=== PATIENT | male | born 2000 | race Hispanic/Latino ===

== ENCOUNTER 2022-07-14 13:01 | Emergency (ER) | payer MEDICAID, OTHER ==
[~2022-07-14] VITALS: Ht 180.3 cm; Wt 74.8 kg
[2022-07-14] MEDS ORDERED: ACETAMINOPHEN 500 MG TABLET PO ONE (14:15)
[2022-07-14] MEDS ORDERED: IBUPROFEN 600 MG TABLET PO ONE (14:15)
[2022-07-14] MEDS ORDERED: 0.9%NACL 1000ML 1,000 ML IV SCH (14:30)
[2022-07-14 14:55] LABS: BASOPHILS % (AUTO) 0.4 % (0.0-5.0); EOSINOPHILS % (AUTO) 0.2 % (0.0-8.0); HEMATOCRIT 46.2 % (42-54); LYMPHOCYTES % (AUTO) 17.9 % (21.0-51.0); MEAN CORPUSCULAR HEMOGLOBIN 29.6 pg (27.0-33.0); MEAN CORPUSCULAR HGB CONC 35.3 g/dL (32.0-36.0); MONOCYTES % (AUTO) 9.7 % (3.0-13.0); NEUTROPHILS % (AUTO) 70.2 % (40.0-77.0); PLATELET COUNT (AUTO) 245 K/uL (130-400); RED CELL DISTRIBUTION WIDTH 12.2 % (11.0-15.5)
[2022-07-14 15:11] LABS: APPEARANCE,URINE CLEAR (CLEAR); BILIRUBIN,URINE NEGATIVE (NEGATIVE); COLOR,URINE YELLOW (YELLOW); GLUCOSE, URINE (UA) NEGATIVE (NEGATIVE); KETONES,URINE 15 mg/dL (NEGATIVE); LEUKOCYTE ESTERASE ,URINE NEGATIVE Leu/uL (NEGATIVE); NITRATE,URINE NEGATIVE (NEGATIVE); OCCULT BLOOD,URINE NEGATIVE (NEGATIVE); PH,URINE 8.5 (5.0-8.0); PROTEIN,URINE NEGATIVE (NEGATIVE)
[2022-07-14 15:13] LABS: ALBUMIN 4.3 g/dL (3.5-5.0); POTASSIUM 3.7 mmol/L (3.5-5.1); TOTAL PROTEIN, SERUM 8.5 g/dL (6.0-8.3)
[2022-07-14 15:22] LABS: BACTERIA,URINE Rare /HPF (None Seen); RBC,URINE None Seen /HPF (0-1); SQUAMOUS EPITHELIAL CELL,UR None Seen /HPF (0-2); WBC,URINE None Seen /HPF (0-1)
[2022-07-14] MEDS ORDERED: ONDANSETRON 4MG INJ IVP ONE (15:30)
[2022-07-14] MEDS ORDERED: CLINDAMYCIN IVPB 600MG/50ML 50 ML IV SCH (16:00)
[2022-07-14] MEDS ORDERED: ONDA4TAB10 PO (16:35)
[2022-07-14] MEDS ORDERED: IBUP-2070 PO (16:35)
[2022-07-14] MEDS ORDERED: ACET-66 PO (16:35)
[2022-07-14] MEDS ORDERED: CLIN-141 PO (16:35)
[2022-07-14 16:59] VITALS: BP 115/59
== END 2022-07-14 17:03 | disposition home or self-care (01) ==
LOC: EDH 13:01 → EDSEX 13:01 → EDH 17:03
DX: L05.01 Pilonidal cyst with abscess (principal); R50.9 Fever, unspecified; R51.9 Headache, unspecified; Z20.822 Contact with and (suspected) exposure to COVID-19
CPT/HCPCS: 99284; 96374; 87635; 96361; 96375; 80053; 85025; 87040 ×2; 87880; 87804 ×2; 83605; 81001; 36415; 84145; C9803; J7030; J2405; J3490

== ENCOUNTER 2022-07-15 12:43 | Emergency (ER) | payer OTHER ==
[~2022-07-15] VITALS: Ht 180.3 cm; Wt 72.6 kg
[~2022-07-15 12:43] MED LIST: ACET-66 PO; CLIN-141 PO; IBUP-2070 PO; ONDA4TAB10 PO
[2022-07-15 12:44] VITALS: BP 130/74
[2022-07-15 13:32] LABS: BASOPHILS % (AUTO) 0.5 % (0.0-5.0); HEMATOCRIT 45.4 % (42-54); LYMPHOCYTES % (AUTO) 24.7 % (21.0-51.0); MEAN CORPUSCULAR HEMOGLOBIN 29.7 pg (27.0-33.0); MEAN CORPUSCULAR HGB CONC 34.8 g/dL (32.0-36.0); MEAN CORPUSCULAR VOLUME 85.3 fL (80-100); MONOCYTES % (AUTO) 7.2 % (3.0-13.0); NEUTROPHILS % (AUTO) 66.4 % (40.0-77.0); PLATELET COUNT (AUTO) 215 K/uL (130-400); RED BLOOD CELL COUNT(AUTO) 5.32 MIL/uL (4.50-6.20); RED CELL DISTRIBUTION WIDTH 12.4 % (11.0-15.5)
[2022-07-15 13:47] LABS: POTASSIUM 4.3 mmol/L (3.5-5.1)
[2022-07-15 14:27] LABS: APPEARANCE,URINE CLEAR (CLEAR); BILIRUBIN,URINE SMALL mg/dL (NEGATIVE); COLOR,URINE YELLOW (YELLOW); GLUCOSE, URINE (UA) NEGATIVE (NEGATIVE); KETONES,URINE >=80 mg/dL (NEGATIVE); LEUKOCYTE ESTERASE ,URINE NEGATIVE Leu/uL (NEGATIVE); NITRATE,URINE NEGATIVE (NEGATIVE); OCCULT BLOOD,URINE NEGATIVE (NEGATIVE); PH,URINE 7.5 (5.0-8.0); PROTEIN,URINE NEGATIVE (NEGATIVE)
[2022-07-15] MEDS ORDERED: 0.9%NACL 1000ML 1,000 ML IV ONE (14:30)
[2022-07-15 14:34] LABS: BACTERIA,URINE Rare /HPF (None Seen); RBC,URINE None Seen /HPF (0-1); WBC,URINE None Seen /HPF (0-1)
[2022-07-15 14:35] LABS: SQUAMOUS EPITHELIAL CELL,UR None Seen /HPF (0-2)
[2022-07-15] MEDS ORDERED: ONDANSETRON 4MG INJ IVP ONE (15:30)
== END 2022-07-15 16:33 | disposition home or self-care (01) ==
LOC: EDH 12:43
DX: R11.2 Nausea with vomiting, unspecified (principal); T40.2X5A Adverse effect of other opioids, initial encounter; Y92.89 Other specified places as the place of occurrence of the external cause
CPT/HCPCS: 99283; 96374; 96361; 80053; 85025; 83605; 81001; 36415; J7030; J2405

== ENCOUNTER 2022-07-16 11:55 | Inpatient (IN) | payer OTHER ==
[~2022-07-16] VITALS: Ht 180.3 cm; Wt 74.7 kg
[2022-07-16] MEDS ORDERED: ONDANSETRON 4MG INJ ONE (12:51)
[2022-07-16] MEDS ORDERED: ONDANSETRON 4MG INJ IVP ONE (13:00)
[2022-07-16] MEDS ORDERED: DIPHENHYDRAMINE HCL 25 MG CAPSULE PO PRN (13:30)
[2022-07-16] MEDS ORDERED: DiphenhydrAMINE HCL 50 MG/ML VIAL IV PRN (13:30)
[2022-07-16] MEDS ORDERED: VANCOMYCIN PROTOCOL PER PHARMACY IV PRN (13:30)
[2022-07-16] MEDS ORDERED: NITROGLYCERIN 0.4 MG SL TAB SL PRN (13:30)
[2022-07-16] MEDS ORDERED: MAG/ALUM/SIMETH 30 ML UDCUP PO PRN (13:30)
[2022-07-16] MEDS ORDERED: GUAIFENESIN-DM 200/20 MG 10 ML PO PRN (13:30)
[2022-07-16] MEDS ORDERED: ONDANSETRON 4MG INJ IV PRN (13:30)
[2022-07-16] MEDS ORDERED: LACTULOSE 20 GM/30 ML UDCUP PO PRN (13:30)
[2022-07-16 14:02] LABS: APPEARANCE,URINE CLEAR (CLEAR); BILIRUBIN,URINE NEGATIVE (NEGATIVE); COLOR,URINE LIGHT-YELLOW (YELLOW); GLUCOSE, URINE (UA) NEGATIVE (NEGATIVE); KETONES,URINE NEGATIVE (NEGATIVE); LEUKOCYTE ESTERASE ,URINE NEGATIVE Leu/uL (NEGATIVE); NITRATE,URINE NEGATIVE (NEGATIVE); OCCULT BLOOD,URINE NEGATIVE (NEGATIVE); PH,URINE 6.5 (5.0-8.0); PROTEIN,URINE NEGATIVE (NEGATIVE); RBC,URINE 0-1 /HPF (0-1); UROBILINOGEN,URINE 0.2 mg/dL (0.2-1.0); WBC,URINE 0-1 /HPF (0-1)
[2022-07-16 14:08] LABS: AMPHET/METH SCREEN,URINE NEGATIVE (NEGATIVE); BARBITURATE SCREEN, URINE NEGATIVE (NEGATIVE); BENZODIAZEPINES SCREEN,URINE NEGATIVE (NEGATIVE); CANNABINOID SCREEN,URINE POSITIVE (NEGATIVE); COCAINE SCREEN,URINE NEGATIVE (NEGATIVE); OPIATE SCREEN,URINE NEGATIVE (NEGATIVE); PHENCYCLIDINE SCREEN,URINE NEGATIVE (NEGATIVE)
[2022-07-16 14:17] LABS: BASOPHILS % (AUTO) 0.6 % (0.0-5.0); HEMATOCRIT 43.8 % (42-54); LYMPHOCYTES % (AUTO) 24.8 % (21.0-51.0); MEAN CORPUSCULAR HEMOGLOBIN 29.2 pg (27.0-33.0); MEAN CORPUSCULAR VOLUME 85.9 fL (80-100); MONOCYTES % (AUTO) 6.2 % (3.0-13.0); NEUTROPHILS % (AUTO) 66.3 % (40.0-77.0); PLATELET COUNT (AUTO) 209 K/uL (130-400); RED CELL DISTRIBUTION WIDTH 12.4 % (11.0-15.5); WHITE BLOOD COUNT (AUTO) 4.8 K/uL (4.8-10.8)
[2022-07-16] MEDS: CEFEPIME HCL 2 GM VIAL IVP SCH (14:20)
[2022-07-16 14:42] LABS: ALBUMIN 3.9 g/dL (3.5-5.0); TOTAL PROTEIN, SERUM 7.9 g/dL (6.0-8.3)
[2022-07-16 15:08] LABS: RAPID PLASMA REAGIN NONREACTIVE (NONREACTIVE)
[2022-07-16 15:10] LABS: THYROID STIMULATING HORMONE 2.22 uIU/mL (0.36-3.74)
[2022-07-16 15:11] LABS: MONOTEST NEGATIVE (NEGATIVE)
[2022-07-16 15:19] LABS: INR 1.05 (0.85-1.15); PROTHROMBIN TIME 11.4 SEC (9.6-11.6)
[2022-07-16 15:20] LABS: PARTIAL THROMBOPLASTIN TIME 31.2 SEC (26.3-35.5)
[2022-07-16] MEDS: VANCOMYCIN 1.25 GM/250 ML BAG 250 ML IV SCH (15:26)
[2022-07-16] MEDS: ACETAMINOPHEN 325 MG TAB PO PRN (19:08)
[2022-07-16] MEDS: FAMOTIDINE 20MG TAB PO SCH (21:00)
[2022-07-16] MEDS: FAMOTIDINE 20MG VIAL IV SCH (21:02)
[2022-07-17] MEDS: CEFEPIME HCL 2 GM VIAL IVP SCH ×3 (00:58→23:57)
[2022-07-17] MEDS: ACETAMINOPHEN 325 MG TAB PO PRN ×6 (00:59→23:58)
[2022-07-17] MEDS: VANCOMYCIN 1.25 GM/250 ML BAG 250 ML IV SCH ×2 (03:58→12:48)
[2022-07-17] MEDS: FAMOTIDINE 20MG TAB PO SCH ×2 (09:00→20:39)
[2022-07-17] MEDS: FAMOTIDINE 20MG VIAL IV SCH ×2 (09:12→20:47)
[2022-07-17 15:10] VITALS: BP 130/64
[2022-07-17 20:00] VITALS: BP 123/66
[2022-07-18] VITALS (8 sets, daily range): BP systolic 115–151; BP diastolic 59–82
[2022-07-18] MEDS: VANCOMYCIN 1.25 GM/250 ML BAG 250 ML IV SCH ×3 (01:12→13:15)
[2022-07-18 01:54] LABS: BASOPHILS % (AUTO) 0.6 % (0.0-5.0); HEMATOCRIT 38.2 % (42-54); LYMPHOCYTES % (AUTO) 36.9 % (21.0-51.0); MEAN CORPUSCULAR HEMOGLOBIN 29.7 pg (27.0-33.0); MEAN CORPUSCULAR HGB CONC 35.3 g/dL (32.0-36.0); MONOCYTES % (AUTO) 6.2 % (3.0-13.0); NEUTROPHILS % (AUTO) 55.8 % (40.0-77.0); PLATELET COUNT (AUTO) 209 K/uL (130-400); RED BLOOD CELL COUNT(AUTO) 4.55 MIL/uL (4.50-6.20); RED CELL DISTRIBUTION WIDTH 12.2 % (11.0-15.5); WHITE BLOOD COUNT (AUTO) 8.8 K/uL (4.8-10.8)
[2022-07-18 02:06] LABS: PHOSPHORUS 3.7 mg/dL (2.5-4.9); POTASSIUM 3.8 mmol/L (3.5-5.1)
[2022-07-18] MEDS: ACETAMINOPHEN 325 MG TAB PO PRN ×4 (04:00→21:29)
[2022-07-18] MEDS: FAMOTIDINE 20MG TAB PO SCH ×2 (08:33→21:28)
[2022-07-18] MEDS: CEFEPIME HCL 2 GM VIAL IVP SCH (13:15)
[2022-07-18 14:11] LABS: HIV SCREEN 4TH GENERATION Preliminary Reactive (Non Reactive)
[2022-07-18] MEDS ORDERED: IOHEXOL 350 MG/ML 100ML INFUS..BTL IV ONE (16:55)
[2022-07-19] MEDS: ACETAMINOPHEN 325 MG TAB PO PRN ×3 (01:28→20:34)
[2022-07-19] MEDS: CEFEPIME HCL 2 GM VIAL IVP SCH ×2 (01:40→13:18)
[2022-07-19] MEDS: VANCOMYCIN 1.25 GM/250 ML BAG 250 ML IV SCH ×2 (01:40→13:19)
[2022-07-19 03:12] VITALS: BP 137/71
[2022-07-19 05:29] LABS: BASOPHILS % (AUTO) 0.8 % (0.0-5.0); EOSINOPHILS % (AUTO) 0.3 % (0.0-8.0); HEMATOCRIT 38.4 % (42-54); LYMPHOCYTES % (AUTO) 37.6 % (21.0-51.0); MEAN CORPUSCULAR HEMOGLOBIN 29.1 pg (27.0-33.0); MEAN CORPUSCULAR HGB CONC 34.9 g/dL (32.0-36.0); MEAN CORPUSCULAR VOLUME 83.3 fL (80-100); MONOCYTES % (AUTO) 5.7 % (3.0-13.0); NEUTROPHILS % (AUTO) 55.3 % (40.0-77.0); PLATELET COUNT (AUTO) 190 K/uL (130-400); RED BLOOD CELL COUNT(AUTO) 4.61 MIL/uL (4.50-6.20); RED CELL DISTRIBUTION WIDTH 12.2 % (11.0-15.5); WHITE BLOOD COUNT (AUTO) 6.2 K/uL (4.8-10.8)
[2022-07-19 05:36] LABS: CREATININE 0.8 mg/dL (0.5-1.5); POTASSIUM 3.5 mmol/L (3.5-5.1)
[2022-07-19 08:00] VITALS: BP 114/46
[2022-07-19] MEDS: FAMOTIDINE 20MG TAB PO SCH ×2 (08:55→20:33)
[2022-07-19 11:54] VITALS: BP 124/70
[2022-07-19 20:00] VITALS: BP 142/72
[2022-07-20] VITALS: BP 133/67
[2022-07-20] MEDS: VANCOMYCIN 1.25 GM/250 ML BAG 250 ML IV SCH ×3 (01:30→21:19)
[2022-07-20] MEDS: CEFEPIME HCL 2 GM VIAL IVP SCH ×2 (01:58→15:44)
[2022-07-20 04:00] VITALS: BP 121/72
[2022-07-20 05:15] LABS: EOSINOPHILS % (AUTO) 0.7 % (0.0-8.0); HEMATOCRIT 37.1 % (42-54); LYMPHOCYTES % (AUTO) 43.4 % (21.0-51.0); MEAN CORPUSCULAR HEMOGLOBIN 29.5 pg (27.0-33.0); MEAN CORPUSCULAR HGB CONC 35.6 g/dL (32.0-36.0); MEAN CORPUSCULAR VOLUME 82.8 fL (80-100); MONOCYTES % (AUTO) 5.8 % (3.0-13.0); NEUTROPHILS % (AUTO) 48.8 % (40.0-77.0); PLATELET COUNT (AUTO) 196 K/uL (130-400); RED BLOOD CELL COUNT(AUTO) 4.48 MIL/uL (4.50-6.20); RED CELL DISTRIBUTION WIDTH 12.2 % (11.0-15.5); WHITE BLOOD COUNT (AUTO) 6.1 K/uL (4.8-10.8)
[2022-07-20 05:29] LABS: CREATININE 0.7 mg/dL (0.5-1.5); POTASSIUM 3.7 mmol/L (3.5-5.1)
[2022-07-20 07:30] VITALS: BP 104/54
[2022-07-20] MEDS ORDERED: VANCOMYCIN 1.75 GM/250 ML BAG 250 ML IV SCH (07:30)
[2022-07-20] MEDS ORDERED: VANCOMYCIN 1.25 GM/250 ML BAG 250 ML IV SCH (07:30)
[2022-07-20] MEDS: FAMOTIDINE 20MG TAB PO SCH ×2 (09:27→21:17)
[2022-07-20 11:30] VITALS: BP 119/72
[2022-07-20] MEDS: DOXYCYCLINE HYCLATE 100 MG TABLET PO SCH ×2 (15:45→21:17)
[2022-07-20 16:00] VITALS: BP 118/70
[2022-07-20 20:00] VITALS: BP 111/53
[2022-07-20] MEDS ORDERED: DOXYCYCLINE HYCLATE 100 MG TABLET PO SCH (21:00)
[2022-07-20] MEDS: ACETAMINOPHEN 325 MG TAB PO PRN (21:18)
[2022-07-20 21:25] LABS: HEPATITIS A IGM ANTIBODY Non-Reactive (Nonreactive); HEPATITIS B CORE IGM ANTIBODY Non-Reactive (Negative); HEPATITIS B SURFACE ANTIGEN Non-Reactive (Nonreactive); HEPATITIS C ANTIBODY Non-Reactive (Nonreactive)
[2022-07-21] VITALS: BP 109/62
[2022-07-21] MEDS: CEFEPIME HCL 2 GM VIAL IVP SCH (00:50)
[2022-07-21 04:00] VITALS: BP 118/68
[2022-07-21] MEDS: VANCOMYCIN 1.25 GM/250 ML BAG 250 ML IV SCH (05:20)
[2022-07-21 07:35] VITALS: BP 133/69
[2022-07-21 08:59] LABS: HEMATOCRIT 38.9 % (42-54); MEAN CORPUSCULAR HEMOGLOBIN 29.3 pg (27.0-33.0); MEAN CORPUSCULAR HGB CONC 35.5 g/dL (32.0-36.0); MEAN CORPUSCULAR VOLUME 82.6 fL (80-100); RED BLOOD CELL COUNT(AUTO) 4.71 MIL/uL (4.50-6.20); RED CELL DISTRIBUTION WIDTH 12.3 % (11.0-15.5); WHITE BLOOD COUNT (AUTO) 8.2 K/uL (4.8-10.8)
[2022-07-21 09:16] LABS: CREATININE 0.7 mg/dL (0.5-1.5); POTASSIUM 3.9 mmol/L (3.5-5.1)
[2022-07-21] MEDS: DOXYCYCLINE HYCLATE 100 MG TABLET PO SCH (09:44)
[2022-07-21] MEDS: FAMOTIDINE 20MG TAB PO SCH (09:44)
[2022-07-21 11:25] VITALS: BP 129/75
[2022-07-21] MEDS ORDERED: DOXY100T2 PO (11:47)
[2022-07-23 15:11] LABS: ROCKY MT SPOTTED FEVER IGG <1:64 (Neg:<1:64); ROCKY MT SPOTTED FEVER IGM <1:64 (Neg:<1:64); TYPHUS FEVER AB IGG <1:64 (Neg:<1:64); TYPHUS FEVER AB IGM <1:64 (Neg:<1:64)
== END 2022-07-21 14:00 | disposition home or self-care (01) | DRG 392 ==
LOC: EDH 11:55 → OBSVTOIN 11:56 → EDHIP 11:56 → 3BH 07-17 14:30
PROVIDERS: ADMIT Internal Medicine; ATTEND Internal Medicine
DX: R19.7 Diarrhea, unspecified (principal); Z21 Asymptomatic human immunodeficiency virus [HIV] infection status; L05.91 Pilonidal cyst without abscess; Z83.3 Family history of diabetes mellitus
CPT/HCPCS: 36415; 71045; 71260; 74177; 76705; 80048; 80053; 80074; 80202; 80305; 81001; 82550; 83605; 83735; 83874; 84100; 84443; 84484; 85025; 85027; 85610; 85651; 85730; 86140; 86308; 86359; 86361; 86592; 86701; 86757; 86812; 87040; 87046; 87324; 87389; 87390; 87486; 87536; 87635; 87797; 87804; 87900; 87901; G0378; J0692; J2405; J3490; Q0163; Q9967